=== PATIENT | female | born 1975 | race Caucasian/White ===

== ENCOUNTER 2018-09-06 20:44 | Emergency (ER) | payer OTHER ==
[~2018-09-06] VITALS: Ht 160 cm; Wt 59.0 kg
[~2018-09-06 20:44] MED LIST: ANTOXYBENA RIGHTEAR; APRI1 EACH PO; Bactrim Ds Tab1 EACH PO; DOCU100 PO; Floxin10 ML RIGHTEAR; HYDR1TAB94 PO; IBUP600 PO; IBUP800 PO; IRON; Inderal40 MG; LEVSOD100 PO; MEDR10 PO; MEDR150I IM; Maxalt5 MG; Norco 5-325 Ta1 EACH PO; PROP60 PO; Percocet 5-3251 EACH PO; Prednisone20 MG PO; SUMA5NI; Synthroid100 MCG PO; THYROID MED
== END 2018-09-06 23:13 | disposition left against medical advice (07) ==
LOC: ER 20:44
DX: Z53.21 Procedure and treatment not carried out due to patient leaving prior to being seen by health care provider (principal)
CPT/HCPCS: 73590; 73610; 73620; 99281-25

== ENCOUNTER 2019-06-11 13:10 | Emergency (ER) | payer OTHER ==
[~2019-06-11] VITALS: Ht 160 cm; Wt 59.0 kg
== END 2019-06-11 14:32 | disposition home or self-care (01) ==
LOC: ER 13:10
DX: M25.562 Pain in left knee (principal); E03.9 Hypothyroidism, unspecified; G43.909 Migraine, unspecified, not intractable, without status migrainosus; Z88.1 Allergy status to other antibiotic agents; Z88.0 Allergy status to penicillin; Z79.899 Other long term (current) drug therapy; F17.210 Nicotine dependence, cigarettes, uncomplicated
CPT/HCPCS: 73562-LT; 96372; 99283-25; J1885

== ENCOUNTER 2020-04-16 08:29 | Day surgery (SDC) | payer OTHER ==
[~2020-04-16] VITALS: Ht 160 cm; Wt 57.4 kg
== END 2020-04-16 12:51 | disposition home or self-care (01) ==
LOC: ORSCSDS 08:29
PROVIDERS: Orthopaedic Surgery
PROC: 0SBD4ZZ Excision of Left Knee Joint, Percutaneous Endoscopic Approach (ICD-10-PCS; principal; 2020-04-16 10:15)
DX: M23.232 Derangement of other medial meniscus due to old tear or injury, left knee (principal); E05.90 Thyrotoxicosis, unspecified without thyrotoxic crisis or storm; E78.5 Hyperlipidemia, unspecified; Z79.899 Other long term (current) drug therapy; Z87.891 Personal history of nicotine dependence
CPT/HCPCS: J0171; J0690; J1100; J1200; J1885; J2250; J2405; J2704; J3010; J7120

== ENCOUNTER 2020-04-27 10:28 | Emergency (ER) | payer OTHER ==
[~2020-04-27] VITALS: Ht 160 cm; Wt 57.1 kg
[2020-04-27] MEDS ORDERED: ACETAMINOPHEN500 MG PO (12:08)
== END 2020-04-27 12:17 | disposition home or self-care (01) ==
LOC: ER 10:28
DX: S80.02XA Contusion of left knee, initial encounter (principal); F17.210 Nicotine dependence, cigarettes, uncomplicated; Z88.0 Allergy status to penicillin; Z79.899 Other long term (current) drug therapy; Z98.890 Other specified postprocedural states; W18.09XA Striking against other object with subsequent fall, initial encounter
CPT/HCPCS: 73564; 99283-25; A9270

== ENCOUNTER 2021-04-12 08:28 | Day surgery (SDC) | payer OTHER ==
[~2021-04-12] VITALS: Ht 160 cm; Wt 59.8 kg
[~2021-04-12 08:28] MED LIST changes: +ACETAMINOPHEN500 MG PO
== END 2021-04-12 13:37 | disposition home or self-care (01) ==
LOC: ORSCSDS 08:28
PROVIDERS: Orthopaedic Surgery
PROC: 0MRP47Z Replacement of Left Knee Bursa and Ligament with Autologous Tissue Substitute, Percutaneous Endoscopic Approach (ICD-10-PCS; principal; 2021-04-12 10:00)
PROC: 0SBD4ZZ Excision of Left Knee Joint, Percutaneous Endoscopic Approach (ICD-10-PCS; principal; 2021-04-12 10:00)
DX: S83.512A Sprain of anterior cruciate ligament of left knee, initial encounter (principal); S83.242A Other tear of medial meniscus, current injury, left knee, initial encounter; S83.282A Other tear of lateral meniscus, current injury, left knee, initial encounter; M94.262 Chondromalacia, left knee; M65.9 Synovitis and tenosynovitis, unspecified; E03.9 Hypothyroidism, unspecified; Z87.891 Personal history of nicotine dependence; Z79.899 Other long term (current) drug therapy
CPT/HCPCS: A9270; C1713; C1776; J0171; J1100; J1885; J2250; J2370; J2405; J2704; J3010; J7120

== ENCOUNTER 2021-12-21 17:41 | Emergency (ER) | payer OTHER ==
[~2021-12-21] VITALS: Ht 162.6 cm; Wt 59.0 kg
== END 2021-12-21 19:41 | disposition home or self-care (01) ==
LOC: ER 17:41
DX: G43.909 Migraine, unspecified, not intractable, without status migrainosus (principal); Z79.899 Other long term (current) drug therapy; Z88.0 Allergy status to penicillin; Z87.891 Personal history of nicotine dependence
CPT/HCPCS: 70450

== ENCOUNTER 2022-02-28 09:04 | Day surgery (SDC) | payer OTHER ==
[~2022-02-28] VITALS: Ht 162.6 cm; Wt 56.3 kg
[2022-02-28] MEDS ORDERED: FERSU300 PO (09:19)
--- NOTE | 2022-02-28 09:29 | NUR ---
02/28/22 0929 Gela Melchor CALL LIGHT WITHIN REACH.
--- NOTE | 2022-02-28 10:29 | NUR ---
02/28/22 1029 Nan Ariza 1 MG EPI ADDED TO EACH OF THE FIRST 3 BAGS OF LR PER ORDER FOR IRRIAGTION AT [facility].
--- NOTE | 2022-02-28 12:37 | NUR ---
02/28/22 1237 Toño Garcia PT REPORTED 6/10 PAIN PRIOR TO DISCHARGE, BUT STATED THIS WAS A ROLERABLE AMOUNT FOR GOING HOME. PT WAS MEDICATED WITH NORCO 5/325MG PER DR DE LA VEGA ORDERS.
== END 2022-02-28 12:35 | disposition home or self-care (01) ==
LOC: ORSCSDS 09:04
PROVIDERS: Orthopaedic Surgery
PROC: 0SBD4ZZ Excision of Left Knee Joint, Percutaneous Endoscopic Approach (ICD-10-PCS; principal; 2022-02-28 10:00)
PROC: 0JBP0ZZ Excision of Left Lower Leg Subcutaneous Tissue and Fascia, Open Approach (ICD-10-PCS; principal; 2022-02-28 10:00)
DX: M94.262 Chondromalacia, left knee (principal); M25.862 Other specified joint disorders, left knee; M67.462 Ganglion, left knee; E03.9 Hypothyroidism, unspecified; Z79.899 Other long term (current) drug therapy
CPT/HCPCS: 88304; A9270; J0171; J1100; J1885; J2250; J2405; J2704; J2795; J3010; J7120

== ENCOUNTER 2022-05-08 11:59 | Emergency (ER) | payer OTHER ==
[~2022-05-08] VITALS: Ht 162.6 cm; Wt 58.1 kg
[~2022-05-08 11:59] MED LIST changes: +FERSU300 PO
== END 2022-05-08 13:50 | disposition home or self-care (01) ==
LOC: ER 11:59
DX: M25.462 Effusion, left knee (principal); W18.42XA Slipping, tripping and stumbling without falling due to stepping into hole or opening, initial encounter; Z79.890 Hormone replacement therapy; Z88.0 Allergy status to penicillin; Z79.899 Other long term (current) drug therapy; Z87.891 Personal history of nicotine dependence
CPT/HCPCS: 73562-LT

== ENCOUNTER 2022-09-15 08:37 | Day surgery (SDC) | payer OTHER ==
[~2022-09-15] VITALS: Ht 162.6 cm; Wt 60.2 kg
--- NOTE | 2022-09-15 09:45 | NUR ---
09/15/22 0945 ANNA MARIE HERBERT 0.1MG OF EPI ADDED TO 20MLS OF ROPIVACAINE 0.5% TO CREATE A LOCAL SOLUTION OF ROPIVACAINE 0.5% WITH EPI 1:200,000. LOCAL POURED ONTO STERILE FIELD FOR USE DURING CASE.
--- NOTE | 2022-09-15 11:01 | NUR ---
09/15/22 1101 Dami Oates FENTANYL 25MCG GIVEN AT 1059 FOR 6/10 RIGHT LEG PAIN.
== END 2022-09-15 11:35 | disposition home or self-care (01) ==
LOC: ORSCSDS 08:37
PROVIDERS: Orthopaedic Surgery
PROC: 0SBC4ZZ Excision of Right Knee Joint, Percutaneous Endoscopic Approach (ICD-10-PCS; principal; 2022-09-15 09:30)
DX: S83.231A Complex tear of medial meniscus, current injury, right knee, initial encounter (principal); E03.9 Hypothyroidism, unspecified; Z79.899 Other long term (current) drug therapy
CPT/HCPCS: J0171; J0690; J1100; J1885; J2250; J2370; J2405; J2704; J2795; J3010; J7120

== ENCOUNTER 2023-01-27 12:54 | Emergency (ER) | payer OTHER ==
[~2023-01-27] VITALS: Ht 160 cm; Wt 61.2 kg
[2023-01-27 13:03] VITALS: BP 146/95
[2023-01-27] MEDS ORDERED: HYDR1TAB94 PO (13:35)
[2023-01-27] MEDS ORDERED: DOXY100 PO (13:35)
== END 2023-01-27 13:49 | disposition home or self-care (01) ==
LOC: ER 12:54
DX: S51.851A Open bite of right forearm, initial encounter (principal); W54.0XXA Bitten by dog, initial encounter; Z88.0 Allergy status to penicillin; Z79.899 Other long term (current) drug therapy; D64.9 Anemia, unspecified; Z87.891 Personal history of nicotine dependence
CPT/HCPCS: 99283; A9270

== ENCOUNTER 2023-04-06 12:10 | Emergency (ER) | payer OTHER ==
[~2023-04-06] VITALS: Ht 162.6 cm; Wt 61.2 kg
[~2023-04-06 12:10] MED LIST changes: +DOXY100 PO
[2023-04-06 12:18] VITALS: BP 100/82
[2023-04-06 12:55] LABS: BASOPHILS ABSOLUTE AUTO 0.05 K/mm3 (0.00-0.23); BASOPHILS PERCENT AUTO 0 % (0-2); EOSINOPHILS ABSOLUTE AUTO 0.06 K/mm3 (0.00-0.68); EOSINOPHILS PERCENT AUTO 1 % (0-6); Hematocrit 44.7 % (33.0-51.0); Hemoglobin 15.6 g/dL (11.5-16.0); IMMATURE GRAN ABSOLUTE AUTO 0.04 K/mm3 (0.00-0.10); IMMATURE GRAN PERCENT AUTO 0 % (0-1); LYMPHOCYTES ABSOLUTE AUTO 2.06 K/mm3 (0.84-5.20); LYMPHOCYTES PERCENT AUTO 18 % (21-46); MONOCYTES ABSOLUTE AUTO 0.69 K/mm3 (0.16-1.47); MONOCYTES PERCENT AUTO 6 % (4-13); Mean Corpuscular HGB 34.3 pg (26.0-34.0); Mean Corpuscular HGB Conc 34.9 g/dL (31.5-36.5); Mean Corpuscular Volume 98 fL (80-100); Mean Platelet Volume 10.4 fL (9.1-12.4); NEUTROPHILS ABSOLUTE AUTO 8.89 K/mm3 (1.96-9.15); NEUTROPHILS PERCENT AUTO 75 % (41-73); Platelet Count 242 K/mm3 (150-400); RDW Coefficient Variation 13.4 % (11.7-14.2); RDW Standard Deviation 48.9 fL (35.1-46.3); Red Blood Cell Count 4.55 M/mm3 (3.80-5.20); White Blood Cell Count 11.79 K/mm3 (4.00-11.30)
[2023-04-06 13:21] LABS: Albumin/Globulin Ratio 0.9 (0.8-1.8); Bilirubin, Total 1.2 mg/dL (0.1-1.0); Bun/Creatinine Ratio 16.9 (12.0-20.0); Calcium, Blood 8.7 mg/dL (8.5-10.1); Creatinine, Blood 1.18 mg/dL (0.40-1.00); Globulin, Blood 4.5 g/dL (2.2-4.0); Potassium, Blood 4.4 mmol/L (3.5-5.5); Total Protein, Blood 8.5 g/dL (6.4-8.2)
[2023-04-06] MEDS ORDERED: ONDA4ODT SL (17:30)
[2023-04-06] MEDS ORDERED: Norco 5-325 Ta1 EACH PO (17:30)
== END 2023-04-06 17:59 | disposition home or self-care (01) ==
LOC: ER 12:10
PROVIDERS: Physician Assistant
DX: K52.9 Noninfective gastroenteritis and colitis, unspecified (principal); K92.1 Melena; Z88.0 Allergy status to penicillin; Z87.891 Personal history of nicotine dependence
CPT/HCPCS: 74177; 80053; 83690; 84443; 85025; 86850; 86900; 86901; 93005; 93010; 96374; 96375; 99285-25; J1200; J2765; J7120; Q9967

== ENCOUNTER 2023-08-21 07:03 | Day surgery (SDC) | payer OTHER ==
[2023-08-21] VITALS (9 sets, daily range): BP systolic 90–111; BP diastolic 62–98
[~2023-08-21] VITALS: Ht 160 cm; Wt 60.9 kg
[~2023-08-21 07:03] MED LIST changes: +ESCI10 PO; +ONDA4ODT SL
[2023-08-21] MEDS ORDERED: Chlorhexidine Mouth Care 15 ML UDC MT SCH (07:45)
[2023-08-21] MEDS ORDERED: Acetaminophen 500 MG Tab PO SCH ×2 (07:45→16:00)
[2023-08-21] MEDS ORDERED: Lactated Ringer's 1,000 ML IV SCH ×2 (07:45→09:45)
[2023-08-21] MEDS ORDERED: OxyCODONE HCL 10 MG TABCR PO SCH (07:45)
[2023-08-21] MEDS ORDERED: Ropivacaine 0.5% HCl/Pf 67.75 MG,EPINEPHrine HCL 0.25 MG,Ketorolac Tromethamine 15 MG,C... INFIL SCH (07:45)
[2023-08-21] MEDS ORDERED: CeFAZolin Sodium 2,000 MG in NS 50 ML IV SCH ×2 (07:45→16:50)
[2023-08-21] MEDS ORDERED: propofoL 20 ML IV ONE ×3 (07:49→08:55)
[2023-08-21] MEDS ORDERED: FentaNYL Citrate 50 MCG/ML 2 ML Injection ONE (07:49)
[2023-08-21] MEDS ORDERED: FentaNYL Citrate 50 MCG/ML 2 ML Injection IV PRN ×2 (08:25→08:30)
[2023-08-21] MEDS ORDERED: Lidocaine HCl 1% 5 ML SYR INJ ONE (08:25)
[2023-08-21] MEDS ORDERED: Midazolam HCl 1MG / ML 2ML Vial IV ONE (08:25)
--- NOTE | 2023-08-21 08:25 | NUR ---
Ambulatory in Day Surgery History, Chart, Medications and Allergies reviewed before start of procedure. Pre-Op teaching done. Pt verbalizes understanding.
[2023-08-21] MEDS ORDERED: HYDROmorphone HCl/Pf 1MG SYR IV PRN ×2 (08:30→09:40)
[2023-08-21] MEDS ORDERED: Ondansetron HCl 2 MG / ML 2ML Vial IV PRN ×2 (08:30→09:35)
[2023-08-21] MEDS ORDERED: OxyCODONE HCL 5 MG TAB PO PRN ×2 (09:35→09:40)
[2023-08-21] MEDS ORDERED: Bisacodyl 10 MG Supp PR PRN (09:40)
[2023-08-21] MEDS ORDERED: FLU VACC QS2023-24(6MOS UP)/PF 60 MCG/0.5 ML SYRINGE IM SCH (09:40)
[2023-08-21] MEDS ORDERED: Promethazine HCl 25 MG Tab PO PRN (09:40)
[2023-08-21] MEDS ORDERED: DiphenhydrAMINE HCL 25 MG Cap PO PRN (09:40)
[2023-08-21] MEDS ORDERED: Phenylephrine HCl 100 MCG/ML-NS 10MLSYR (1MG/10ML) ONE (09:41)
[2023-08-21] MEDS ORDERED: Magnesium Hydroxide Conc 10 ML UDC PO PRN (09:45)
[2023-08-21] MEDS ORDERED: Metoclopramide HCl 5MG / ML 2ML Vial IV PRN (09:45)
[2023-08-21] MEDS ORDERED: Ondansetron HCl 2 MG / ML 2ML Vial ONE (10:11)
[2023-08-21] MEDS ORDERED: Dexamethasone Sod Phos 10 MG/ML 1ML VIAL ONE (10:11)
[2023-08-21] MEDS ORDERED: Ketorolac Tromethamine 15mg Vial IV SCH (12:00)
[2023-08-21] MEDS ORDERED: Misc. Nasal Solution PRN (14:05)
[2023-08-21] MEDS ORDERED: OXYC5 PO (15:54)
[2023-08-21] MEDS ORDERED: Aspir 8181 MG PO (15:55)
--- NOTE | 2023-08-21 17:45 | NUR ---
DISCHARGE SUMMARY S/P L TKA, AQUACEL JENNIFER CDI/TEDS ON. PT REPORTED READINESS TO DC TONIGHT EVEN WITHOUT RECEIVING A PHYSICAL THERAPY EVALUATION; PT IS APPROVED TO DC HOME W/O PHYSICAL THERAPY EVALUATION BY DR MNEJIVAR. BINH PO, VOIDING, AMB FWW/GB, PAIN MANAGED, IV DC'D. DC INS PROVIDED. PT REP UNDERSTANDING THOSE INSTRUCTIONS. LEFT FLOOR VIA WC WITH CADD INSTRUCTOR TO GO HOME WITH FRIEND, WITH ALL PERSONAL POSSESSIONS INCLUDING DC PACKET, 2 AQUACEL DRESSINGS, 1 EXTRA PACK MARSHALL HOSE.
[2023-08-21] MEDS ORDERED: Docusate Sodium 100 MG Cap PO SCH (21:00)
[2023-08-22] MEDS ORDERED: Levothyroxine Sodium 0.1 MG Tab PO SCH (06:00)
[2023-08-22] MEDS ORDERED: Citalopram Hydrobromide 20 MG Tab PO SCH (09:00)
[2023-08-22] MEDS ORDERED: Propranolol HCL 60 MG CAPCR PO SCH (09:00)
[2023-08-22] MEDS ORDERED: Aspirin 81 MG Chew PO SCH (09:00)
== END 2023-08-21 17:45 | disposition home or self-care (01) ==
LOC: ORSCMMR 07:03 → ORD 10:00 → SURS 10:58 → ORSCMMR 17:45 → ORD 08-28 08:15
PROVIDERS: Orthopaedic Surgery
PROC: 0SRD0JA Replacement of Left Knee Joint with Synthetic Substitute, Uncemented, Open Approach (ICD-10-PCS; principal; 2023-08-21 09:00)
PROC: 0QP104Z Removal of Internal Fixation Device from Sacrum, Open Approach (ICD-10-PCS; principal; 2023-08-21 09:00)
DX: M17.12 Unilateral primary osteoarthritis, left knee (principal); E03.9 Hypothyroidism, unspecified; F41.9 Anxiety disorder, unspecified; Z79.899 Other long term (current) drug therapy; T84.84XA Pain due to internal orthopedic prosthetic devices, implants and grafts, initial encounter
CPT/HCPCS: 73560-LT; A9270; C1776; J0171; J0690; J0735; J1100; J1170; J1885; J2250; J2371; J2405; J2704; J2795; J3010; J7120

== ENCOUNTER 2024-03-02 02:40 | Emergency (ER) | payer OTHER ==
[~2024-03-02] VITALS: Ht 162.6 cm; Wt 61.2 kg
[~2024-03-02 02:40] MED LIST changes: +Aspir 8181 MG PO; +HYDROCODONE-AC1 EA19 PO; +OXYC5 PO
[2024-03-02] MEDS ORDERED: Acetaminophen 500 MG Tab PO ONE (03:15)
[2024-03-02] MEDS ORDERED: HYDROmorphone HCl/Pf 1MG SYR IM ONE (03:40)
[2024-03-02 04:01] VITALS: BP 131/99
[2024-03-02] MEDS ORDERED: RX Prepack 2 Sprays Naloxone HCL 4 MG/SPRAY UD ONE (05:15)
[2024-03-02] MEDS ORDERED: RX Prepack 6 Tabs Oxycodone 5mg UD ONE (05:15)
[2024-03-02] MEDS ORDERED: Roxicodone5 MG PO (05:16)
== END 2024-03-02 05:26 | disposition home or self-care (01) ==
LOC: ER 02:40
DX: S42.411A Displaced simple supracondylar fracture without intercondylar fracture of right humerus, initial encounter for closed fracture (principal); W01.0XXA Fall on same level from slipping, tripping and stumbling without subsequent striking against object, initial encounter; Z87.891 Personal history of nicotine dependence; Z79.82 Long term (current) use of aspirin; Z79.899 Other long term (current) drug therapy; Z88.0 Allergy status to penicillin
CPT/HCPCS: 73070; A9270; J1170

== ENCOUNTER 2024-03-10 09:36 | Day surgery (SDC) | payer OTHER ==
[~2024-03-10] VITALS: Ht 162.6 cm; Wt 62.8 kg
[~2024-03-10 09:36] MED LIST changes: +Roxicodone5 MG PO
[2024-03-10] MEDS ORDERED: CeFAZolin Sodium 2,000 MG VIAL ONE (10:01)
[2024-03-10] MEDS ORDERED: NS 50 ML IV ONE (10:01)
[2024-03-10] MEDS ORDERED: Lactated Ringer's 1,000 ML IV ONE ×3 (10:01→13:44)
[2024-03-10] MEDS ORDERED: PROP60 PO (10:09)
[2024-03-10] MEDS ORDERED: FentaNYL Citrate 50 MCG/ML 2 ML Injection ONE ×3 (10:15→16:02)
[2024-03-10] MEDS ORDERED: Midazolam HCl 1MG / ML 2ML Vial ONE (10:15)
--- NOTE | 2024-03-10 10:54 | NUR ---
03/10/24 1054 Rosaura Álvarez TIME OUT TAKEN TO VERIFY CORRECT PT, SITE, PROCEDURE, ALLERGIES. PT ELECTED TO PROCEED WITH BLOCK. TOLERATED WELL. END AT 1058
[2024-03-10] MEDS ORDERED: Rocuronium Bromide 10 MG/ML 5ML Injection IV ONE ×2 (10:56→11:17)
[2024-03-10] MEDS ORDERED: propofoL 20 ML IV ONE ×2 (10:56→11:17)
[2024-03-10] MEDS ORDERED: HYDROmorphone HCl/Pf 1MG SYR ONE (11:28)
[2024-03-10] MEDS ORDERED: Dexamethasone Sod Phos 10 MG/ML 1ML VIAL ONE (11:29)
[2024-03-10] MEDS ORDERED: Ondansetron HCl 2 MG / ML 2ML Vial ONE (11:29)
[2024-03-10] MEDS ORDERED: Phenylephrine HCl 100 MCG/ML-NS 10MLSYR (1MG/10ML) ONE (11:29)
--- NOTE | 2024-03-10 11:38 | NUR ---
03/10/24 1138 Meghan Cruz LATERAL LEFT POSITION. LEFT ARM ON ARMBOARD WITH TOWEL UNDER HAND AND GELPAD OVER ELBOW. RIGHT ARM POSITIONED USING WESTERN ARM POSITIONER. GEL PAD UNDER SEATBELT. GEL PAD UNDER ANKLES AND PILLOW BETWEEN KNEES.
[2024-03-10] MEDS ORDERED: Sugammadex Sodium 200 MG/2ML SDV (100 MG/ML) ONE (13:10)
[2024-03-10] MEDS ORDERED: Lidocaine 2%-Epineph 1:200000 20 ML SDV ONE (13:10)
[2024-03-10] MEDS ORDERED: Bupivacaine 0.5% HCl 5 MG/ML 30MLVIAL ONE (13:10)
[2024-03-10] MEDS ORDERED: Lidocaine HCl 2% 20 ML MDV INJ ONE (13:43)
--- NOTE | 2024-03-10 14:05 | NUR ---
03/10/24 1405 MONALISA PATTON PT UPON ADMIT TO PACU, O2 ON 10L VIA NON-REBREATH TRIAL ON 5L IS 98%. PT STILL SLEEPING QUIETLY
--- NOTE | 2024-03-10 14:36 | NUR ---
03/10/24 1436 MONALISA PATTON PT ON 4L O2 VIA NON-REBREATH. WAKES, ADJUSTS, THEN FALLS BACK TO SLEEP AND SNORING. O2 SAT DIPS WHEN NOT ON O2. DENIES PAIN AND NAUSEA
[2024-03-10] MEDS ORDERED: HYDROcodone 5-APAP 325 TAB ONE ×2 (15:00→16:18)
[2024-03-10 16:24] VITALS: BP 148/102
== END 2024-03-10 16:45 | disposition home or self-care (01) ==
LOC: ORSCSDS 09:36
PROVIDERS: Orthopaedic Surgery
PROC: 0PSF04Z Reposition Right Humeral Shaft with Internal Fixation Device, Open Approach (ICD-10-PCS; principal; 2024-03-10 11:30)
DX: S42.491A Other displaced fracture of lower end of right humerus, initial encounter for closed fracture (principal); W01.0XXA Fall on same level from slipping, tripping and stumbling without subsequent striking against object, initial encounter; Z87.891 Personal history of nicotine dependence; E03.9 Hypothyroidism, unspecified; E78.5 Hyperlipidemia, unspecified; Z79.899 Other long term (current) drug therapy
CPT/HCPCS: A9270; C1713; J0690; J1100; J1170; J2250; J2371; J2405; J2704; J3010; J7120